=== PATIENT | male | born 1995 | race Hispanic/Latino ===

== ENCOUNTER 2021-04-14 18:36 | Emergency (ER) | payer SELFPAY ==
[2021-04-14 18:50] VITALS: BP 156/104; PULSE 73; RESP 16; TEMP 36.8; O2SAT 100
--- NOTE | 2021-04-14 19:31 | ED.NAVMDI ---
HPI - Nausea/Vomiting/Diarrhea General Chief complaint: Nausea/Vomiting/Diarrhea Stated complaint: Headache,Nausea History of Present Illness HPI Narrative: This is a 26-year-old comes in complaining of nausea and vomiting states his goes on every morning when he wakes up states he is also been having a headache and the headache never goes anywhere patient states that he has not been feeling well for quite some times when he took something for his headache he still did not go anywhere. Patient also states that he does not have a primary care doctor. Related Data Allergies Allergy/AdvReac Type Severity Reaction Status Date / Time No Known Allergies Allergy Unverified 04/14/21 19:23 Review of Systems Review of Systems: Headache, nausea vomiting, high blood pressure All systems reviewed & are unremarkable except as noted in HPI and below PMFSH Comments At time as signature, I have reviewed and agree with nursing past medical, social, surgical and family history. Please see nursing chart for further information. There is no relevant family history pertinent to the presenting complaint. Exam Narrative: GENERAL:Well-appearing, well-nourished, and in no acute distress. HEAD:Normocephalic, atraumatic. EYES: PERRLA ENT: Nares clear, no rhinorrhea or epistaxis. Mucous membranes moist. NECK: Supple. CHEST: Clear to auscultation. No respiratory distress. HEART: Regular rate and rhythm. Normal peripheral pulses. ABDOMEN: Soft, nontender, nondistended, normal active bowel sounds. EXTREMITIES: Normal range of motion. No edema. SKIN: Warm, dry, no rash. NEURO: No focal deficits. Alert and oriented x3. Course Course Emergency Course: Clear discussion with patient about hypertension the risk the risk of having a stroke All findings and discussed with SI HF they will see patient tomorrow regarding his blood pressure. Patient was not willing to go to the emergency room. Patient was given clonidine which did not change patient's blood pressure much patient states that he is feeling better he is less nauseous Vital Signs Vital signs: Vital Signs Temperature 98.2 F 04/14/21 18:50 Pulse Rate 73 04/14/21 18:50 Respiratory Rate 16 04/14/21 18:50 Blood Pressure 156/104 H 04/14/21 18:50 Pulse Oximetry 100 04/14/21 18:50 Temperature 98.2 F 04/14/21 18:50 Pulse Rate 73 04/14/21 18:50 Respiratory Rate 16 04/14/21 18:50 Blood Pressure 154/102 H 04/14/21 20:31 Pulse Oximetry 100 04/14/21 18:50 Discharge Plan Discharge Clinical Impression: Hypertension, Nausea & vomiting Patient Disposition: Home, Self-Care Condition: Stable Instructions: Antibiotic Form, Hypertension (ED) Additional Instructions: Your blood pressure was elevated in the clinic today, yOU BLOOD PRESSURE IS EXTREMELY HIGH AND YOU ARE AT RISK FOR A HEART ATTACK AND OR STROKE IT IS VITAL THAT YOU GET A PRIMARY CARE PROVIDER SO THEY ARE ABLE TO ADDRESS YOUR BLOOD PRESSURE please follow-up with your regular doctor for further evaluation and monitor for evaluation of hypertension Please [facility] schedule a followup visit with your personal physician with in the next 1-4 weeks for further evaluation and treatment. Also, ask your personal physician to assist you regarding blood pressure. Even blood pressure exceeding 120/80 may indicate pre-hypertension. If your symptoms persist, change or worsen significantly before you can contact your personal physician then please, without delay, go to the emergency department for further evaluation. kEEP THE APPOINTMENT THAT WAS MADE FOR YOU FOR TOMORROW 845 Prescriptions: New ondansetron HCl [Zofran] 4 mg tablet 4 mg PO Q8H PRN (Reason: nausea and vomiting) Qty: 20 RF: 0 Follow-up/Referrals: PHYSICIAN,TECHNICAL SERVICES SPECIALIST [Primary Care Provider] - Stand Alone Forms: Work/School Release IP Time of Disposition: 20:26
[2021-04-14] MEDS: ONDANSETRON HCL ODT 4 MG TABLET PO (19:39)
[2021-04-14] MEDS: cloNIDine HCL 0.1 MG TABLET PO (19:51)
[2021-04-14 20:31] VITALS: BP 154/102
== END 2021-04-14 20:31 | disposition home or self-care (01) ==
PROVIDERS: Emergency Provider Nurse Practitioner Family
DX: I10 Essential (primary) hypertension (principal); R11.2 Nausea with vomiting, unspecified
CPT/HCPCS: 99213; A9270; G0463